=== PATIENT | female | born 1955 | race Caucasian/White ===

== ENCOUNTER 2022-11-09 15:12 | Emergency (ER) | payer MEDICARE, SELFPAY ==
--- NOTE | ~2022-11-09 | XR_ITS ---
EXAM: XR hand LT min 3V, XR hand RT min 3V DATE: 11/09/2022 17:59 HISTORY: dog bite, r/o FB, fx, MULTIPLE SMALL PUNCTURES/ABRASIONS . COMPARISON: None available. FINDINGS: Normal mineralization. No fracture or dislocation. No lytic or blastic lesion. Scattered m ild osteoarthritic changes. No erosion or periosteal change. No subcutaneous gas. Punctate calcific d ensities project over the mid palmar soft tissues of the left hand. IMPRESSION: No acute osseous finding in the left or right hands. Punctate calcific densities project over the mid palmar soft tissues of the left hand, presumably chronic, unless accompanied by soft tis makenzie injury of the left palm. Reviewed, dictated and finalized at location K. CUTTER OPERATOR IMPRESSION: No acute osseous finding in the left or right hands. Punctate calci fic densities project over the mid palmar soft tissues of the left hand, presum ably chronic, unless accompanied by soft tissue injury of the left palm.
[2022-11-09 15:16] VITALS: BP 150/75; PULSE 112; RESP 16; O2SAT 97
--- NOTE | 2022-11-09 15:27 | PC.NURSE ---
wounds cleansed in triage with ns.
--- NOTE | 2022-11-09 17:19 | ED.ANIMALBIT ---
HPI - Animal Bite General Chief Complaint: Animal Bite <CHELI Zuñiga Last Filed: 11/10/22 03:31> Stated Complaint: DOG BITE TO HANDS AND FACE <CHELI Zuñiga Last Filed: 11/10/22 03:31> Time Seen by Provider: 11/09/22 17:13 <CHELI Zuñiga Last Filed: 11/10/22 03:31> Source: patient <CHELI Zuñiga Last Filed: 11/10/22 03:31> Mode of arrival: ambulatory <CHELI Zuñiga Filed: 11/10/22 03:31> Limitations: no limitations <CHELI Zuñiga Filed: 11/10/22 03:31> History of Present Illness HPI narrative: Patient is a 67 y/o female who presents to the ED with c/o dog bites to her bilateral hands and lower lip. Patient reports she was trying to break up a fight between her dog and another dog when she was bitten by both dogs. She has small wounds to her bilateral dorsal hands and her lower lip. No active bleeding. Patient's tetanus status is up-to-date. The dog was not vaccinated for rabies, but is currently being quarantined by the [facility] animal control. Patient denies any other injuries. No fevers. <CHELI Zuñiga Last Filed: 11/10/22 03:31> Related Data Allergies/Adverse Reactions: Allergies Allergy/AdvReac Type Severity Reaction Status Date / Time amoxicillin Allergy Unknown Rash Verified 11/09/22 18:07 STATINS Allergy Unknown Weakness Uncoded 11/09/22 18:07 <CHELI Zuñiga Last Filed: 11/10/22 03:31> Review of Systems Review of Systems: CONSTITUTIONAL: Denies fever, chills, or sweats. SKIN: Reports wounds to bilateral hands and lower lip. NEUROLOGIC: Denies tingling, numbness, or weakness. <CHELI Zuñiga Last Filed: 11/10/22 03:31> All systems reviewed & are unremarkable except as noted in HPI and below <Nina Jo PA-C - Last Filed: 11/10/22 03:31> [facility] Past Medical History Medical History: Medical History Benign tumor of breast HLD (hyperlipidemia) HTN (hypertension) <Nina Jo PA-C - Last Filed: 11/10/22 03:31> Surgical History Surgical History: Surgical History (Updated 11/09/22 @ 17:55 by Nina Jo PA-C) No pertinent past surgical history <Nina Jo PA-C - Last Filed: 11/10/22 03:31> Social History Social History: Social History (Updated 11/09/22 @ 17:55 by Nina Jo PA-C) Smoking status: Never smoker <Nina Jo PA-C - Last Filed: 11/10/22 03:31> Exam Narrative: GENERAL: Well appearing, well-nourished, non-toxic, in no acute distress. HEAD: Normocephalic, atraumatic. ENT: Small abrasion midline below lower lip, no active bleeding. Small abrasion along left sided abad border of lower lip. No deeper lacerations or wounds. No internal mucosal involvement. NECK: Supple. No adenopathy, no masses. RESPIRATORY: Airway patent, respirations nonlabored. Clear to auscultation bilaterally, no rales, rhonchi, wheezing. CARDIOVASCULAR: Regular rate and rhythm without murmurs, rubs, or gallops. Radial pulses 2+ and equal bilaterally. MUSCULOSKELETAL: Moves all extremities. Strength/ROM intact. Several abrasions/skin tears to bilateral dorsal hands. Pinpoint puncture wound in webspace between 2nd and 3rd MCP joints with minimal active bleeding. No significant TTP over 2nd or 3rd MCP joint directly. Full ROM of fingers. SKIN: Warm, dry, normal color. No rashes. NEURO: A&O X3. Speech clear. Cranial nerves II-XII grossly intact. Steady gait. No ataxic movements. PSYCHIATRIC: Appropriate mood and affect. Normal interaction. <Nina Jo PA-C - Last Filed: 11/10/22 03:31> Course AIR CONTROL/[employer]I [employer] WARFARE OFFICER/PA Physician Supervision For this encounter, I have reviewed the mid-level provider documentation, treatment plan and medical decision making with the following additions: 10 point
[2022-11-09 17:41] VITALS: BP 160/97; PULSE 100; RESP 20; TEMP 36.8; O2SAT 96
[2022-11-09] MEDS: CLINDAMYCIN HCL 150 MG CAP 450 MG PO (18:06)
[2022-11-09] MEDS: DOXYCYCLINE HYCLATE 100 MG TABLET PO (18:06)
== END 2022-11-09 18:51 | disposition home or self-care (01) ==
LOC: ANHED 18:15
PROVIDERS: Emergency Provider Physician Assistant; PCP Internal Medicine Endocrinology, Diabetes & Metabolism
DX: S01.551A Open bite of lip, initial encounter (principal); S61.452A Open bite of left hand, initial encounter; S61.451A Open bite of right hand, initial encounter; E78.5 Hyperlipidemia, unspecified; I10 Essential (primary) hypertension; W54.0XXA Bitten by dog, initial encounter
CPT/HCPCS: 73130; 99284; A9270